=== PATIENT | female | born 1975 | race Caucasian/White ===

== ENCOUNTER 2018-08-31 20:47 | Emergency (ER) | payer BC ==
[~2018-08-31] VITALS: Ht 167.6 cm; Wt 68.0 kg
[~2018-08-31 20:47] MED LIST: CIPROFLOXACIN500 MG PO; CLARITIN10 MG PO; COMBIVENT1 ARO IH; FIORICET W/CODE1 CA1 PO; LEVOFLOXACIN500 MG PO; MIDRIN (DURADR1 CAP PO; MOTRIN800 MG PO; NIX 60 ML60 ML TP; PREDNISONE10 MG PO; ROBITUSSIN AC 110 ML PO; VENTOLIN H0.09 MG/AC INH; ZITHROMAX Z PA250 MG PO; ZOFRAN ODT4 MG SL; ZOFRAN4 MG PO
[2018-08-31 22:00] VITALS: BP 118/66
[2018-08-31] MEDS ORDERED: KETOROLAC10 MG PO (22:15)
[2018-11-30] MEDS ORDERED: Motrin,Rufen800 MG PO (00:04)
[2018-11-30] MEDS ORDERED: CYCLOBENZAPRINE5 M3 PO (00:04)
[2019-01-26] MEDS ORDERED: SPIRIVA -- 3018 MCG INH (17:46)
[2019-01-26] MEDS ORDERED: VENTOLIN 02.5 MG/3 M INH (17:46)
[2019-01-26] MEDS ORDERED: PREDNISONE50 MG PO (17:46)
[2019-01-26] MEDS ORDERED: AVPAK AZITHROM250 MG PO (17:46)
== END 2018-08-31 22:25 | disposition home or self-care (01) ==
LOC: ED 20:47
DX: R51 Headache (principal); R11.0 Nausea; H53.8 Other visual disturbances; F17.200 Nicotine dependence, unspecified, uncomplicated; Z79.2 Long term (current) use of antibiotics; Z79.899 Other long term (current) drug therapy

== ENCOUNTER 2018-11-01 22:09 | Emergency (ER) | payer BC ==
[~2018-11-01] VITALS: Ht 167.6 cm; Wt 74.8 kg
[~2018-11-01 22:09] MED LIST changes: +KETOROLAC10 MG PO
[2018-11-01 22:13] VITALS: BP 101/63
[2018-11-01] MEDS ORDERED: PROAIR HFA8.5 GM INH (23:27)
[2018-11-01] MEDS ORDERED: FLONASE ALLERG9.9 ML NAS (23:27)
[2018-11-01] MEDS ORDERED: ALLEGRA-D 24 H1 EACH PO (23:27)
[2018-11-30] MEDS ORDERED: CYCLOBENZAPRINE5 M3 PO (00:04)
[2018-11-30] MEDS ORDERED: Motrin,Rufen800 MG PO (00:04)
[2019-01-26] MEDS ORDERED: SPIRIVA -- 3018 MCG INH (17:46)
[2019-01-26] MEDS ORDERED: PREDNISONE50 MG PO (17:46)
[2019-01-26] MEDS ORDERED: AVPAK AZITHROM250 MG PO (17:46)
[2019-01-26] MEDS ORDERED: VENTOLIN 02.5 MG/3 M INH (17:46)
== END 2018-11-01 23:51 | disposition home or self-care (01) ==
LOC: ED 22:09
DX: J06.9 Acute upper respiratory infection, unspecified (principal); H92.03 Otalgia, bilateral; R42 Dizziness and giddiness; F17.200 Nicotine dependence, unspecified, uncomplicated; Z79.899 Other long term (current) drug therapy

== ENCOUNTER 2019-02-20 07:46 | Emergency (ER) | payer BC ==
[~2019-02-20] VITALS: Ht 167.6 cm; Wt 79.4 kg
[~2019-02-20 07:46] MED LIST changes: +ALLEGRA-D 24 H1 EACH PO; +AVPAK AZITHROM250 MG PO; +CYCLOBENZAPRINE5 M3 PO; +FLONASE ALLERG9.9 ML NAS; +Motrin,Rufen800 MG PO; +PREDNISONE50 MG PO; +PROAIR HFA8.5 GM INH; +SPIRIVA -- 3018 MCG INH; +VENTOLIN 02.5 MG/3 M INH
[2019-02-20 07:47] VITALS: BP 110/70
[2019-02-20] MEDS ORDERED: Motrin,Rufen800 MG PO (09:22)
== END 2019-02-20 09:38 | disposition home or self-care (01) ==
LOC: ED 07:46
DX: S93.402A Sprain of unspecified ligament of left ankle, initial encounter (principal); J44.9 Chronic obstructive pulmonary disease, unspecified; X50.1XXA Overexertion from prolonged static or awkward postures, initial encounter; Y93.01 Activity, walking, marching and hiking; Y92.89 Other specified places as the place of occurrence of the external cause; Y99.8 Other external cause status

== ENCOUNTER 2019-04-06 09:27 | Inpatient (IN) | payer BC ==
[~2019-04-06] VITALS: Ht 167.6 cm; Wt 73.3 kg
--- NOTE | ~2019-04-06 | EKG ---
[place], [place] ELECTROCARDIOGRAM REPORT NAME: ED NIXON UNIT #: [id number] ROOM: 408 DOCTOR: POONAM DRAFT REPORT BIRTHDATE: [birth year] [facility] Test Date: 2019-04-06 Test Time: 09:55:06 Pat Name: ED NIXON Department: Room: 408 Gender: F Paper Carrier: : 1975 Requested By: CHRISTA CEE Order Number: [id number] Reading MD: Arun English MD Measurements Intervals [place] Rate: 69 P: 65 CT: 126 QRS: 49 QRSD: 89 T: 60 QT: 364 QTc: 390 Interpretive Statements Sinus rhythm Probable left atrial enlargement Electronically Signed On 04-07-2019 15:00:57 PDT by Arun English MD CM:EKGRPT:ELECTROCARDIOGRAM REPORT [id number] CHRISTA LEVIN DRAFT REPORT CHRISTA CEE MD
[2019-04-06 09:28] VITALS: BP 110/72
[2019-04-06 09:57] LABS: BASO # 0.1 10*3/uL (0.0-0.1); BASO % 0.6 % (0.0-1.0); EOS # 0.4 10*3/uL (0.0-0.4); EOS % 4.1 % (1.0-4.0); HEMATOCRIT 43.4 % (37.0-47.0); HEMOGLOBIN 14.8 g/dl (12.0-16.0); LYMPH # 4.2 10*3/uL (1.3-4.4); LYMPH % 40.9 % (27.0-41.0); MEAN CELL VOLUME 92.5 fl (81.0-99.0); MEAN CORPUSCULAR HGB 31.6 pg (27.0-31.0); MEAN CORPUSCULAR HGB CONC 34.1 g/dl (33.0-37.0); MEAN PLATELET VOLUME 10.2 fl (9.6-12.3); MONO # 0.8 10*3/uL (0.1-1.0); MONO % 7.3 % (3.0-9.0); NEUT # 4.8 10*3/uL (2.3-7.9); NEUT % 46.9 % (47.0-73.0); PLATELET COUNT AUTOMATED 258 10*3/uL (130-400); RED BLOOD COUNT 4.69 10*6/uL (4.10-5.10); RED CELL DISTRI WIDTH 13.5 % (0-14.5); WHITE BLOOD COUNT 10.3 10*3/uL (4.8-10.8)
[2019-04-06 10:09] LABS: ACT PARTIAL THROMBO TIME 26.6 SECONDS (20.0-32.1); INTERNATIONAL NORM RATIO 0.9 (2.0-3.5)
[2019-04-06 10:15] LABS: ALBUMIN 3.9 gm/dl (3.1-4.5); ALKALINE PHOSPHATASE 57 U/L (45-117); BUN 6 mg/dl (7-24); CHLORIDE 106 mmol/L (98-107); CREATININE 0.84 mg/dL (0.55-1.02); POTASSIUM 3.9 mmol/L (3.5-5.1); SGOT/AST 6 IU/L (3-35); SGPT/ALT 13 U/L (12-78); SODIUM 136 mmol/L (136-145); TOTAL PROTEIN 7.3 gm/dL (6.4-8.2)
[2019-04-06 10:17] LABS: TROPONIN I < 0.015 ng/ml (<0.045)
[2019-04-06 11:15] VITALS: BP 110/64
--- NOTE | 2019-04-06 11:15 | NUR ---
Time: 1114 A 43 year old FEMALE admitted to under services of ADIEL OSORIO DO. Pt. arrived via [facility]ART FROM ER WITH CHIEF C/O VASILE BENNETT
[2019-04-06 16:00] VITALS: BP 121/70
--- NOTE | 2019-04-06 19:15 | NUR ---
ADMITTED PATIENT EARLIER TODAY, SHE CONTINUE WITH C/O DRY HACKING COUGH, WHICH IS MAKING HER THROAT BURN. REQUESTED COUGH MEDICINE BE GIVEN IN A COUPLE OF HOURS WELL A CEPACOL.
[2019-04-06 20:00] VITALS: BP 128/66
--- NOTE | 2019-04-06 21:43 | NUR ---
PATIENT HAS DRY HACKING COUGH MEDICATED WITH ROBITUSSIN PRN ORDERED.
--- NOTE | 2019-04-06 22:15 | NUR ---
PATIENT REPORTS THE ROBITUSSIN WAS SOMEWHAT EFFECTIVE, STILL HAVING OCCASIONAL COUGH.
--- NOTE | 2019-04-06 23:10 | NUR ---
OBTAINED PATIENT FROM [facility]. PATIENT IS RESTING IN BED, AWAKE AND ALERT. VOICED NO COMPLAINTS AT THIS TIME. BED IS LOCKED IN LOWEST POSITION. CALL LIGHT WITHIN REACH.
[2019-04-07] VITALS: BP 120/62
--- NOTE | 2019-04-07 01:23 | NUR ---
24 HR chart check completed.
--- NOTE | 2019-04-07 01:46 | NUR ---
PATIENT MEDICATED WITH ROBITUSSIN PER REQUESTED FRO PERSISTENT COUGH. WILL MONITOR
--- NOTE | 2019-04-07 02:46 | NUR ---
PATIENT STATED ROBITUSSIN SOMEWHAT EFFECTIVE. REQUESTING HOT TEA AT THIS TIME.
[2019-04-07 06:55] LABS: HEMATOCRIT 38.7 % (37.0-47.0); MEAN CELL VOLUME 92.8 fl (81.0-99.0); MEAN CORPUSCULAR HGB 31.2 pg (27.0-31.0); MEAN CORPUSCULAR HGB CONC 33.6 g/dl (33.0-37.0); MEAN PLATELET VOLUME 10.7 fl (9.6-12.3); PLATELET COUNT AUTOMATED 274 10*3/uL (130-400); RED BLOOD COUNT 4.17 10*6/uL (4.10-5.10); RED CELL DISTRI WIDTH 13.4 % (0-14.5)
[2019-04-07 07:14] LABS: BUN 7 mg/dl (7-24); CHLORIDE 109 mmol/L (98-107); CHOLESTEROL 140 mg/dL (<200); CREATININE 0.68 mg/dL (0.55-1.02); HDL CHOLESTEROL 39 mg/dl (40-60); LDL CHOLESTEROL 85 mg/dL (9-159); POTASSIUM 3.5 mmol/L (3.5-5.1); SODIUM 139 mmol/L (136-145); TRIGLYCERIDES 78 mg/dl (<150); VLDL CHOLESTEROL 16 mg/dL (6-40)
[2019-04-07 07:43] LABS: TOTAL CELLS COUNTED 100 #CELLS
[2019-04-07 07:45] LABS: PLATELET SUFFICIENCY NORMAL (NORMAL)
[2019-04-07 08:00] VITALS: BP 147/53
--- NOTE | 2019-04-07 09:00 | NUR ---
Senior Water Resources Engineer in to talk to patient. Patient states lives at home with family. There are few steps in the home. Physician: villa young Pharmacy: [facility] health services: none Patient's level of ADLs: INDEPENDENT Patient has working utilities: all working DME: nebulizer Follow-up physician's appointment after d/c: will be made by hospitalist nurse director upon discharge Does patient want to access PORTAL?: no Discharge plan discussed with patient, she states she lives at home, is independent in adls and ambulation, works, drives, she states she will be returning home when able and denies any home needs. KARI NOYOLA
--- NOTE | 2019-04-07 11:32 | NUR ---
ROBITUSSIN AND CEPACOL GIVEN PER PRN ORDER FOR C/O COUGH/SORE THROAT. HARSH NON-PRODUCTIVE COUGH DURING ASSESSMENT. WILL MONITOR EFFECTIVENESS. CALL LIGHT WITHIN REACH.
[2019-04-07 12:00] VITALS: BP 111/68; BP 123/63
[2019-04-07 16:00] VITALS: BP 116/69
[2019-04-07 20:00] VITALS: BP 115/64
--- NOTE | 2019-04-07 20:13 | NUR ---
PRN CEPECOL AND COUGH SYRUP GIVEN FOR PT COMPLAINTS HACKING COUGH. CALL LIGHT WITHIN REACH, WILL MONITOR
--- NOTE | 2019-04-07 22:00 | NUR ---
PRN MEDICATION EFFECTIVE PER PT
--- NOTE | 2019-04-07 22:04 | NUR ---
PRN TYLNEOL GIVEN FOR PT COMPLAINTS OF RIB DISCOMFORT FROM COUGHING. CALL LIGHT WITHIN REACH, WILL AGATA
--- NOTE | 2019-04-07 23:00 | NUR ---
PRN MEDICATION APPERAS EFFECTIVE, PT SLEEPING
[2019-04-08] VITALS: BP 135/82
--- NOTE | 2019-04-08 02:02 | NUR ---
24 HR chart check completed.
--- NOTE | 2019-04-08 03:33 | NUR ---
PRN TYLENOL CEPECOL AND COUGH SYRUP GIVEN FOR PT COMPLAINTS OF COUGH AND RIB PAIN FROM COUGHING. CALL EFREM GONZALES
--- NOTE | 2019-04-08 04:30 | NUR ---
PRN MEDICATION APPERAS EFFECTIVE, PT SLEEPING
[2019-04-08 08:00] VITALS: BP 106/83
--- NOTE | 2019-04-08 08:56 | NUR ---
PT SITTING UP IN BED. NO DISTRESS NOTED. WILL MONITOR
--- NOTE | 2019-04-08 09:00 | NUR ---
case management visits with patient, she will be returning home when able and denies any home needs
[2019-04-08 12:00] VITALS: BP 131/58
[2019-04-08] MEDS ORDERED: VIBRAMYCIN100 MG PO (13:13)
[2019-04-08] MEDS ORDERED: PROAIR HFA8.5 GM INH (13:13)
[2019-04-08] MEDS ORDERED: VITAMIN D50000 UNIT PO (13:13)
[2019-04-08] MEDS ORDERED: NEBULIZER DEVI (13:13)
[2019-04-08] MEDS ORDERED: PREDNISONE10 MG PO (13:13)
[2019-04-08] MEDS ORDERED: NICOTROL10 MG INH (13:13)
--- NOTE | 2019-04-08 14:38 | NUR ---
case management received a script for a nebulizer, contacted Karol at [facility], patient's information faxed, Karol will contact case management if there is any more information needed
--- NOTE | 2019-04-08 15:10 | NUR ---
Discharge instructions reviewed with patient/family. Patient receptive and verbalizes understanding. Follow-up care arranged. Written instructions given to patient/family. RICKY JOY
== END 2019-04-08 15:10 | disposition home or self-care (01) | DRG 871 ==
LOC: ED 09:27 → EDHOLD 10:34 → 4E 10:34
PROVIDERS: Emergency Medicine; Family Medicine; ADMIT Emergency Medicine
DX: A41.9 Sepsis, unspecified organism (principal); J18.9 Pneumonia, unspecified organism; J44.1 Chronic obstructive pulmonary disease with (acute) exacerbation; J44.0 Chronic obstructive pulmonary disease with (acute) lower respiratory infection; F39 Unspecified mood [affective] disorder; F12.90 Cannabis use, unspecified, uncomplicated; E55.9 Vitamin D deficiency, unspecified; F17.210 Nicotine dependence, cigarettes, uncomplicated; Z71.6 Tobacco abuse counseling; Z82.5 Family history of asthma and other chronic lower respiratory diseases; Z83.3 Family history of diabetes mellitus; Z79.899 Other long term (current) drug therapy; Z79.51 Long term (current) use of inhaled steroids

== ENCOUNTER 2020-03-24 19:47 | Emergency (ER) | payer BC ==
[~2020-03-24] VITALS: Ht 167.6 cm; Wt 81.6 kg
[~2020-03-24 19:47] MED LIST changes: +NEBULIZER DEVI; +NICOTROL10 MG INH; +VIBRAMYCIN100 MG PO; +VITAMIN D50000 UNIT PO
[2020-03-24 19:53] VITALS: BP 98/62
[2020-03-24 21:22] LABS: BASO # 0.1 10*3/uL (0.0-0.1); BASO % 0.5 % (0.0-1.0); EOS # 0.3 10*3/uL (0.0-0.4); EOS % 1.8 % (1.0-4.0); HEMATOCRIT 42.5 % (37.0-47.0); LYMPH # 2.5 10*3/uL (1.3-4.4); LYMPH % 17.4 % (27.0-41.0); MEAN CELL VOLUME 94.7 fl (81.0-99.0); MEAN CORPUSCULAR HGB 31.6 pg (27.0-31.0); MEAN CORPUSCULAR HGB CONC 33.4 g/dl (33.0-37.0); MONO # 0.8 10*3/uL (0.1-1.0); MONO % 5.8 % (3.0-9.0); NEUT # 10.5 10*3/uL (2.3-7.9); NEUT % 74.2 % (47.0-73.0); PLATELET COUNT AUTOMATED 279 10*3/uL (130-400); RED BLOOD COUNT 4.49 10*6/uL (4.10-5.10); RED CELL DISTRI WIDTH 14.3 % (0-14.5); WHITE BLOOD COUNT 14.1 10*3/uL (4.8-10.8)
[2020-03-24 21:37] LABS: ALBUMIN 3.6 gm/dl (3.1-4.5); ALKALINE PHOSPHATASE 61 U/L (45-117); BUN 6 mg/dl (7-24); CHLORIDE 108 mmol/L (98-107); CREATININE 0.84 mg/dL (0.55-1.02); LIPASE 76 U/L (73-393); POTASSIUM 3.6 mmol/L (3.5-5.1); SGOT/AST 6 IU/L (3-35); SGPT/ALT 15 U/L (12-78); SODIUM 138 mmol/L (136-145)
[2020-03-24 23:26] LABS: BILIRUBIN NEGATIVE (NEGATIVE); BLOOD 1+ (NEGATIVE); CLARITY SL CLOUDY (CLEAR); COLOR YELLOW (YELLOW); GLUCOSE NEGATIVE (NEGATIVE); KETONE NEGATIVE (NEGATIVE); LEUKO ESTERASE TRACE (NEGATIVE); NITRITE NEGATIVE (NEGATIVE); UROBILINOGEN 0.2 E.U./dl (0.2-1.0)
[2020-03-24 23:34] LABS: EPITHELIAL CELLS 16-20
[2020-03-24 23:35] LABS: RBC 21-30 rbc/hpf (0-2); WBC 16-20 wbc/hpf (0-5)
[2020-03-24] MEDS ORDERED: PYRIDIUM100 MG PO (23:38)
[2020-03-24] MEDS ORDERED: SEPTDS PO (23:38)
== END 2020-03-24 23:55 | disposition home or self-care (01) ==
LOC: ED 19:47
PROVIDERS: Physician Assistant
DX: N39.0 Urinary tract infection, site not specified (principal); Z79.899 Other long term (current) drug therapy